=== PATIENT | female | born 1965 | race Caucasian/White ===

== ENCOUNTER 2021-11-15 15:00 | Outpatient (CLI) | payer BC ==
[2021-11-15] MEDS ORDERED: Iopamidol-370 76% 500 ML 1 ML ONE (15:23)
== END 2021-11-15 15:01 | disposition home or self-care (01) ==
LOC: BICCT 15:00
PROVIDERS: ATTEND Physician Assistant Medical
DX: R10.9 Unspecified abdominal pain (principal); R19.7 Diarrhea, unspecified; N28.9 Disorder of kidney and ureter, unspecified; Z87.19 Personal history of other diseases of the digestive system
CPT/HCPCS: 74177; Q9967

== ENCOUNTER 2022-05-13 07:56 | Outpatient (CLI) | payer BC ==
[2022-05-13] MEDS ORDERED: Iopamidol 370 76% 100 ML VIAL ONE (09:25)
== END 2022-05-13 07:57 | disposition home or self-care (01) ==
LOC: CT 07:56
PROVIDERS: ATTEND Physician Assistant Medical
DX: N28.9 Disorder of kidney and ureter, unspecified (principal); R10.9 Unspecified abdominal pain
CPT/HCPCS: 74170; 82565; Q9967

== ENCOUNTER 2025-02-24 10:03 | Outpatient (CLI) | payer OTHER ==
[2025-02-24 10:50] LABS: Estimated GFR - POC 52.0
[2025-02-24] MEDS ORDERED: Iopamidol 370 76% 100 ML VIAL ONE (13:36)
== END 2025-02-24 10:04 | disposition home or self-care (01) ==
LOC: CT 10:03
PROVIDERS: ATTEND Internal Medicine Gastroenterology
DX: K21.9 Gastro-esophageal reflux disease without esophagitis (principal); K62.5 Hemorrhage of anus and rectum; R10.9 Unspecified abdominal pain; R19.7 Diarrhea, unspecified
CPT/HCPCS: 36415; 74177; 82565; Q9967